=== PATIENT | male | born 1965 | race African-American/Black ===

== ENCOUNTER 2016-11-19 21:28 | Emergency (ER) | payer SELFPAY ==
[2016-11-19 21:34] VITALS: BP 143/84; PULSE 100; TEMP 98.8; BMI 28.3
== END 2016-11-19 23:05 | disposition left against medical advice (07) ==
LOC: ED 21:28
DX: R51 Headache (principal); R42 Dizziness and giddiness; R11.0 Nausea; Z53.21 Procedure and treatment not carried out due to patient leaving prior to being seen by health care provider
CPT/HCPCS: 99281

== ENCOUNTER 2016-12-18 12:47 | Emergency (ER) | payer SELFPAY ==
[2016-12-18 12:53] VITALS: TEMP 98.9; BMI 27.2
[2016-12-18] MEDS ORDERED: MECLIZINE 25 MG TAB PO ONE (13:00)
[2016-12-18] MEDS ORDERED: DIAZEPAM 5 MG TAB PO ONE (13:00)
[2016-12-18] MEDS ORDERED: ONDANSETRON HCL 4 MG ODT TAB PO ONE (13:00)
--- NOTE | 2016-12-18 13:03 | EDPRACDOC ---
- General Information Chief Complaint: Neuro Symptoms/Deficits Stated Complaint: DIZZINESS Time Seen by Provider: 12/18/16 12:57 Information Source: Patient Mode Of Arrival: Car Home Medications: Home Medications Diazepam [Valium] 5 mg PO TID #20 tablet 12/18/16 Meclizine HCl [Antivert] 25 - 50 mg PO TID #20 tablet 12/18/16 Ondansetron [Zofran Odt] 4 mg PO Q6H #20 tab.rapdis 12/18/16 Oxycodone Immediate Release [Oxycodone Immediate Release (OxyIR)] 5 mg PO Q4H PRN #15 tab 12/18/16 Allergies/Adverse Reactions: Allergies Allergy/AdvReac Type Severity Reaction Status Date / Time No Known Allergies Allergy Verified 12/18/16 12:52 - History of Present Illness Onset: 3 days Exact Onset of Symptoms: Known Date Symptoms Started: 12/15/16 HPI: PT C/O DIZZINESS AND BILATERAL JAW TIGHTNESS WITH PAINFUL ROM. NO CP SOB NAUSEA NECK PAIN OR FEVERS OR CHILLS AT THIS TIME. PT HAS HAD MULTIPLE VISITS IN THE PAST FOR DIZZINESS. HE STATES ITS NO DIFFERENT TODAY FEELS LIGHT HEADED ROOM NOT SPINNING. Symptoms Started: Reports: Suddenly Symptoms Description: Constant Symptoms: Reports: Faintness (LIGHTHEADED NO VERTIGO SYMPTOMS AT THIS TIME) Symptom Severity: Reports: Does not affect activitiy Associated signs and symptoms:: Reports: None ED Past Medical History - History Reviewed Yes Nurses notes reviewed and agree except as marked Travel Outside of [place] in the Last 3 Months?: No - Patient Medical History Cardiac History: Reports: Hypertension (untreated) GI/ History: Reports: Gastroesophageal Reflux Psychological History: Reports: Anxiety. Denies: Depression, Substance Use Disorder Systemic History: Reports: Diabetes (NO MEDS). Denies: Cancer - Family Medical History Reports: Hypertension (MOTHER, BROTHERS, SISTERS), Diabetes (FATHER), Cancer ( MOTHER - unknown type.), Cardiac Disorders (MOTHER. BROTHER 1: [place] in his 30's. Brother 2: [place], 50yo. Brother 3: [place].). Denies: Stroke - Social Medical History Smoking Status: Never smoker Social History: Denies: Substance Use Disorder ETOH: None Substance Abuse: None Lives With: Other Lives In: Home EDM Review of Systems - Review of Systems ROS Negative Except as Marked: Yes All systems reviewed and were negative except as marked Constitutional: No Symptoms Reported. negative: Fever, Chills, Weakness, Fatigue, Loss of Appetite Eyes: No Symptoms Reported. negative: Redness, Blurred Vision, Double Vision, Discharge, Pain, Light Sensitive, Photophobia Ears: No Symptoms Reported. negative: Pain, Hearing Loss, Drainage, Ear Pulling Throat: No Symptoms Reported. negative: Pain, Swelling Nose: No Symptoms Reported. negative: Congestion, Bleeding, Discharge, Injection, Swelling, Deformity, Ecchymosis, Tender, Abrasion, Laceration Mouth: Other (BILATERAL JAW PAIN). negative: Pain, Drooling Respiratory: No Symptoms Reported. negative: Cough, Brassy Cough, Barky Cough, Shortness of Breath, Wheezing, Hemoptysis Cardiovascular: No Symptoms Reported. negative: Chest Pain, Palpitations, Syncope, Edema, Orthopnea, PND, Skin Mottling, Cyanosis Gastrointestinal: No Symptoms Reported. negative: Pain, Constipation, Nausea, Vomiting, Diarrhea, Melena, Formula Intolerance Genitourinary: No Symptoms Reported. negative: Dysuria, Hematuria, Frequency, Discharge, Bleeding, Testicular Pain, Neurological: Dizziness (LIGHTHEADED). negative: Gait Difficulty, Headache, Numbness, Seizure, Speech Difficulty, Weakness Musculoskeletal: No Symptoms Reported. negative: Neck, Chestwall, Ribs, Back, Shoulder, Arm, Elbow, Forearm, Wrist, Hand, Pelvis, Hip, Femur, Knee, Leg, Ankle , Foot Integumentary: No Symptoms Reported. negative: Itching, Rash, Bruising, Wound Allergic/Immunologic: No Symptoms Reported. negative: Hives, Itching Hematologic: No Symptoms Reported. negative: Lymphadenopathy, Easy Bruising, Easy Bleeding Endocrine: No Symptoms Reported. negative: Weight Gain, Weight Loss Psychiatric: Anxiety (H/O ANXIETY). negative: Depression, Hallucinations, Insomnia, Suicidal - Physical Exam Constitutional: Alert (Awake), No apparent distress Oriented to: Time, Person, Place Last recorded Vital Signs: Last Vital Signs Temp 98.9 F 12/18/16 12:52 Pulse 98 12/18/16 12:52 Resp 20 12/18/16 12:52 BP 163/90 12/18/16 12:52 Pulse Ox 96 12/18/16 12:52 Oxygen Pulse Oxygen Saturation 96 O2 Device Room Air Oxygen Flow Rate Fraction of Inspired Oxygen ( FIO2) - HEENT Head: Normal ( normocephalic) Eye Exam: Normal (PERRL, EOMI, Sclera white) Oropharynx: Normal (Pharynx:Moist without exudate,Gums-no swelling) Tympanic Membrane: Normal ENT EAC: Normal TMJ: Tender, Other (PAINFUL ROM, PT STATES FEELS TIGHT HARD TO OPEN AND CLOSE MOUTH) Nose: No Symptoms Reported (septum midline) Neck: Normal (FROM, trachea at midline) - Respiratory/Cardiovascular Respiratory: Normal - CTA (BBS clear to auscultation without adventitious sounds ) Cardiovascular: Normal (RRR without murmur, gallop or rub) - GI Auscultation: Normal (NABS) Palpation: Normal (Soft,No rebound or guarding, non distended) Tenderness: Non tender Marcano's Sign: Negative - Bladder: Normal - Musculoskeletal Back: Normal (Non-Tender) Extremities: Normal (Normal tone, Pulses 2+ No cyanosis or edema, FROM) - Integumentary Skin: Normal, Warm, Dry Lymphatics: Normal (no adenopathy) - Neurologic Memory Impaired: Normal Motor Function: Normal (Normal tone, Pulses 2+ No cyanosis or edema, FROM) Cranial Nerve: Normal (CN II-X11 intact sensation, strength 5/5) Cerebellar: Normal Mood Description: Anxious Perception: Normal NIH Stroke Scale Initial Evaluation Level of Consciousness: Alert LOC- Question: Answers Both Correctly LOC Commands: Both Task Correctly Best Gaze: Normal Visual: No Visual Loss Facial Palsy: Normal Movement Motor Arm LEFT: No Drift Motor Arm RIGHT: No Drift Motor Leg LEFT: No Drift Motor Leg RIGHT: No Drift Limb Ataxia: Absent Sensory: Normal Best Language: No Aphasia Dysarthria: Normal Extinction and Inattention: No Abnormality (Neglect) Score: 0out of42 - Differential Diagnosis Other (TMJ SYNDROME, FACIAL MUSCLE SPASM, PERIPHERAL VERTIGO, OTITIS MEDIA) - EKG EKG #1 EKG Time: 13:14 -: Yes EKG interpreted by me Rate: bpm: 99 [place]: Normal Rhythm: NSR Block: None Hypertrophy: None ST: Normal Decision Time to Discharge: 14:20 - Departure Disposition: Home Condition: Stable Final Diagnosis: TMJ (temporomandibular joint syndrome), Dizziness Instructions: Dizziness (ED), Temporomandibular Disorder (ED) Education/Counseling Given To: Patient Education/Counseling Given Regarding: Diagnosis, Treatment, Prognosis, Follow Up Referrals: None,No Provider [Primary Care Provider] - One Week Ghada Gibson DDS [Staff Physician] - One Week Prescriptions: New Diazepam [Valium] 5 mg PO TID #20 tablet Meclizine HCl [Antivert] 25 - 50 mg PO TID #20 tablet Ondansetron [Zofran Odt] 4 mg PO Q6H #20 tab.rapdis Oxycodone Immediate Release [Oxycodone Immediate Release (OxyIR)] 5 mg PO Q4H PRN #15 tab PRN Reason: Pain
[2016-12-18] MEDS ORDERED: OXYCODONE HCL 5 MG TABLET PO ONE (14:20)
[2016-12-18 14:37] VITALS: BP 140/90; PULSE 87
== END 2016-12-18 14:36 | disposition home or self-care (01) ==
LOC: ED 12:47
DX: M26.609 Unspecified temporomandibular joint disorder, unspecified side (principal)
CPT/HCPCS: 82962; 93005; 99285; J3490